=== PATIENT | female | born 1975 | race Caucasian/White ===

== ENCOUNTER 2016-11-30 12:27 | Day surgery (SDC) | payer OTHER ==
[~2016-11-30] VITALS: Ht 175.3 cm; Wt 173.4 kg
[2016-11-30] VITALS (9 sets, daily range): BP systolic 122–144; BP diastolic 56–88; PULSE 84–92; RESP 13–20; O2SAT 88–97
[~2016-11-30 12:27] MED LIST: ALBU90AE IH; ATROVENT NASAL SPRAY INH; BECL8.7A6 INHALATION; EPIN0.3P2 IJ; FLUT9.9S NS; HYDR-3740 PO; HYDR28.311 PR; IPRA15SP NS; IPRA3AMP IH; KEN1O TP; LAMO150T PO; LEVO150T5 PO; LEVO175T5 PO; LEVO200T6 PO; LIRA0.6P SQ; METH20TA33 PO; METR500T PO; PRAZ1CAP2 PO; RES15 PO; SALM50DI IH; SUMA50TA31 PO; SYMINH INHALATION; Sodium Biphos-Phos 133 mL Enema RECTAL SCH
[2016-11-30] MEDS ORDERED: Propofol 10,000 mCg/mL 20 mL Inj ONE (12:28)
[2016-11-30] MEDS ORDERED: Ondansetron 2 mg/mL 2 mL Inj ONE (12:28)
[2016-11-30] MEDS: Lactated Ringer's 1,000 ML IV SCH ×2 (12:33→14:34)
[2016-11-30] MEDS ORDERED: Lactated Ringer's 1,000 ML IV SCH (14:54)
[2016-11-30] MEDS ORDERED: Lactated Ringer's 500 ML IV PRN (14:54)
[2016-11-30] MEDS ORDERED: fentaNYL-PF 50 mCg/mL 2 mL Inj IVPUSH PRN (14:55)
[2016-11-30] MEDS ORDERED: Ondansetron 2 mg/mL 2 mL Inj IVPUSH PRN (14:55)
[2016-11-30] MEDS ORDERED: Atropine 0.4 mg/mL Inj IVPUSH PRN (14:55)
[2016-11-30] MEDS ORDERED: MetoCLOpramide 5 mg/mL 2 mL Inj IVPUSH PRN (14:55)
[2016-11-30] MEDS ORDERED: Labetalol 5 mg/mL 4 mL Inj IV PRN (14:55)
[2016-11-30] MEDS ORDERED: hydrALAZINE 20 mg/mL Inj IVPUSH PRN (14:55)
[2016-11-30] MEDS ORDERED: EPHEDrine Sulfate 50 mg/mL Inj IVPUSH PRN (14:55)
[2016-11-30] MEDS ORDERED: Phenylephrine 10,000 mCg/mL Inj IVPUSH PRN (14:55)
[2016-11-30] MEDS ORDERED: HYDROmorphone 1 mg/mL Inj IVPUSH PRN (14:55)
[2016-11-30] MEDS ORDERED: Bupivacaine-MPF 0.5% W/EPI 30 mL Inj INFILTRATE ONE (15:02)
[2016-11-30] MEDS ORDERED: HYDROcodone-APAP 5-325 mg Tablet PO PRN (16:00)
[2016-11-30] MEDS ORDERED: Albuterol 2.5 mg/3 mL Inhalation Solution NEB ONE (16:21)
--- NOTE | 2016-11-30 16:33 | OP ---
[address] [address] OPERATIVE REPORT PATIENT: PATRICIO JIMENES : 1975 MR#: [id number] ADMIT: 11/30/2016 JOB ID: [id number] DATE OF SURGERY: 11/30/2016 ANESTHESIA: General. PREOPERATIVE DIAGNOSIS(ES): Fistula in ano. POSTOPERATIVE DIAGNOSIS(ES): 1. Fistula in ano. 2. External hemorrhoids. OPERATION: 1. Anorectal examination under anesthesia. 2. Placement of draining seton in anal fistula. SURGEON: Dr. Sabas Gonzalez. MANAGER ATHLETICS: Orville Garcia PA-C (instruction assistant principal is required for safe and timely completion of this case) and JACKIE Richey. COMPLICATIONS: None. ESTIMATED BLOOD LOSS: None. CONDITION: Satisfactory. SPECIMEN: None. FINDINGS: There was a fistula extending from just inside the verge to 4 cm from the verge at the 2 o'clock position (left anterior lateral). She also had large external hemorrhoids. No other abnormalities were identified. INDICATIONS AND SIGNIFICANT HISTORY: The patient is a 41-year-old morbidly obese female, whose father has Crohn disease. She has had a history consistent with anal fistula since age 8. She recently developed an abscess with subsequent drainage and was referred to me. Given her size, a complete examination in the clinic was difficult. She also complained of pain and believed that she had an anal fissure. She has had a lot of blood per rectum. OPERATIVE TECHNIQUE: The patient was taken to the operating room and placed in the supine position. General anesthesia was administered. She was placed in lithotomy and the perineum was prepped and draped in a standard surgical fashion. A procedural pause was performed. I began with a digital rectal examination, which was unremarkable. She had large bulging circumferential external hemorrhoids. I then inserted a little anal speculum and inspected the anus. There was an inordinate amount of inflammation though the examination was somewhat limited due to her body habitus. I then probed the external opening of the anal fistula. There were a couple little openings close by but they all went to the same tract and went to the anterior midline. They did not seem to course through much external sphincter at all. A blue vessel loop was placed as a draining seton. There was an area of induration which with compression would produce some stool and pus out of the fistula tract. I, therefore, irrigated this with hydrogen peroxide and continued to manually decompress until it was clear. The case was then concluded. MTDD
--- NOTE | 2016-11-30 16:58 | PCM.HPANE ---
Patient Data Surgeon Admitting Provider: Attending Provider:Sabas Gonzalez MD Primary Care Physician:Jorge Freeman MD Other Provider:[facility] Reason for Visit Perianal Absess Ht/WT & BMI Height (Feet): 5 Height (Inches): 8 Weight (Kilograms): 171.322 Body Mass Index 57.00 Allergies Coded Allergies: gabapentin (Verified Adverse Reaction, Severe, NO POSITIVE EFFECTS,WEIGHT GAIN, 11/30/16) Past Anesthesia History Anesthesia History: Denies:: Fam Anesthesia Reaction, Fam Malignant Hypertherm Diabetes History Hx Diabetes?: Yes Type of Diabetes: Type II Glycemic Control: Insulin Dependent MRSA MRSA: No Medications Hypertension Medication: Yes (PRAZOSIN) Reported Medications Liraglutide (Victoza 2-Bolivar)0.6 Mg/0.1 Ml Pen.injctr0.2 Mg SQ DAILY 11/28/16 Triamcinolone Acet (Triamcinolone Acetonide Ointment)1 Applic/0.25 Gm Oint1 Applic TP BID #60 GM Ref 0 0.1% 11/28/16 Budesonide/Formoterol 160-4.5 mcg Inh (Symbicort 160-4.5 mcg Inh)120 Puff Inhaler2 Puff INHALATION BID #1 INHALER Ref 0 11/28/16 Salmeterol Xinafoate (Serevent Diskus)50 Mcg/Puff Inhaler1 Puff IH BID 11/28/16 Beclomethasone Dipropionate (Qvar)8.7 Gm Aer.w.adap4 Puff INHALATION BID #8.7 GM 11/28/16 Hydrocortisone (Proctosol-Hc)28.35 Gm Cream.appl1 Applic [place] DAILY 11/28/16 Prazosin 1 Mg Capsule1 Mg PO HS 11/28/16 Metronidazole (Flagyl)500 Mg Yfkzih769 Mg PO Q8H 11/28/16 Levothyroxine 200 Mcg Piojgv593 Mcg PO DAILY Ref 0 11/28/16 Levothyroxine 175 Mcg Erdxvo238 Mcg PO DAILY Ref 0 11/28/16 Ipratropium [place] (Ipratropium [place] 0.06% Nasal)15 Ml Spray1 [place] NS QID # 1 BOTTLE Ref 0 11/28/16 Hydrocodone-Acetaminophen 10-325 mg 1 Each Tablet1-2 Tablet PO Q6H PRN For Pain Ref 0 11/28/16 Fluticasone Propionate (Flonase Allergy Relief)50 Mcg/Actuation [place].susp9.9 Ml NS DAILY PRN PRN 11/28/16 Epinephrine (Epipen 2-Bolivar)0.3 Mg/0.3 Ml Auto.injct0.3 Mg IJ PRN 11/28/16 Ipratropium/Albuterol Sulfate (Iprat-Albut 0.5-3(2.5) mg/3 mL Inhalant Soln)3 Ml Ampul.neb3 Ml IH Q6 Ref 0 11/28/16 [Atrovent Nasal [place]] No Conflict Check1 [place] INH QID PRN PRN 11/28/16 Methylphenidate 20 Mg Rvcjfo29 Mg PO BID Ref 0 09/21/15 Lamotrigine (Lamictal)150 Mg Qgptul547 Mg PO BID Ref 0 09/21/15 Sumatriptan Succinate (Imitrex)50 Mg Emrhnb51-864 Mg PO PRN 09/21/15 Albuterol Sulfate (Proair Respiclick)90 Mcg Aer.pow.ba2 Puffs IH PRN 09/21/15 Temazepam 15 Mg Lkcgbbt69 Mg PO HS PRN For Insomnia Ref 0 09/21/15 Discontinued Reported Medications Levothyroxine 150 Mcg Bjebna303 Mcg PO BID Ref 0 09/21/15 Hydrocodone-Acetaminophen 10-325 mg 1 Each Tablet1-2 Tablet PO Q6H PRN For Pain Ref 0 09/21/15 Alprazolam (Xanax)0.5 Mg Tablet0.5 Mg PO TID PRN For Anxiety Ref 0 09/21/15 Omeprazole (Prilosec)20 Mg Capcr20 Mg PO DAILY PRN PRN Ref 0 09/21/15 Bupropion HCl (Zyban)150 Mg Tablet.er150 Mg PO BID 09/21/15 History History of ENT Problems?: Yes Hx of Heart Problems?: Yes Cardiovascular History: Positive for:: Hypertension Denies:: Chest Pain Heart Murmur (ECHO 02/2016 EF 70-75%) Pacemaker Rheumatic Fever Thrombophlebitis Other Cardiac History: HX LEUKOCYTOSIS Hx of Respiratory Problem?: Yes Respiratory History: Positive for:: Asthma COPD (PFT/PULM NOTES 02/2016 SHOW MODERATE OBSTRUCTION) Dyspnea Use of C-PAP Machine (JOAQUÍN+ W/ CPAP) Hx Neurologic Problems?: Yes Neurological History: Positive for:: Dizziness Headaches Denies:: Alzheimer's Disease CVA Dementia Seizures Other Neurological Pertinent: HX OF CHRONIC PAIN Hx of GI Problems?: Yes Gastrointestinal History: Positive for:: Gastroesphageal Reflux Heartburn Rectal Bleeding (HX OF 2 PREVIOUS ANAL FISTULAS ANAL FISTULA=CURRENT PROBLEM) Denies:: Liver Disease (HEPATOSPLENOMEGALY) Other GI Pertinent History: OBESITY-PT UNDERGOING WORKUP FOR BARIATRIC SURGERY Hx of Problems?: No Female Hx: Positive for:: Problems with Breasts? ("LUMPS") Denies:: Currently Endometriosis Pelvic Inflammatory Skin History: Positive for:: History Skin Disorders? (ECZEMA) Denies:: Pressure Ulcers Hx Musculoskeletal Problems?: Yes Musculoskeletal History: Positive for:: Fibromyalgia Musculoskeletal Trauma (C/OF B/L KNEE PAIN) Denies:: Back Injury Joint Replacement Hx of Psycho/Social Problems?: Yes Psycho Social History: Positive for:: Anxiety Bipolar Disorder (BIPOLAR II) Hx Depression Suicide Attempt (X2 A TEENAGER-NO HOSPITALIZATION+) Hx Surgeries?: No Hx Any Other Health Problems?: No Other History: Positive for:: Thyroid Disease Denies:: Cancer Endocrine Disease (C/OF NIGHT SWEATS) Hospitalization History Blood Transfusions: Denies:: Blood Transfusions Hx Diabetes: Yes Hx Alcohol Use: NoHx Substance Use: No Smoking Status: Former Smoker Have You Smoked inLast 12 mo: No Stop/Bang S-Snoring: Do You Snore Loudly: Yes T-Tired: feel tired, fatigued: Yes O-Obsered: Observed not breath: Yes P-Blood Pressure: treated: No B- Body Mass Index > 35 kg/m2: Yes A- Age over 50: No N- Neck Large Circumference: Yes G- Gender Male: No JOAQUÍN Total Score: 5 Risk Assessment Category Category 1A: Patient has history of documented sleep apnea, and HAS NOT received any narcotic, sedative or anesthesia administration during this stay. Category 1B: Patient has history of documented sleep apnea, and HAS received any narcotic , sedative or anesthesia administration during this stay Category 2: Patient has SUSPECTED Obstructive Sleep Apnea, and HAS received any narcotic , sedative or anesthesia administration during this stay. Category 3: Patient has SUSPECTED Obstructive Sleep Apnea and HAS NOT received narcotic, sedative or anesthesia administration during this stay. Category 4: Outpatient in Procedural Areas with known sleep apnea or who screen positive for High Risk via the STOP/BANG questionnaire. Exam Exam General Appearance: Alert, Oriented X3, Cooperative, No Acute Distress HEENT/AIRWAY: MP 2, Neck Movement (FROM very large neck circumference), Mouth Opening (3 FBMO) Lungs: Clear to Auscultation, Normal Air Movement Heart: Exam Unremarkable, Regular Rate/Rhythm, No Murmurs/Rubs/Gallops Plan Impression Patient chart reviewed, patient interviewed and anesthestic plan with risks, benefits, and alternatives discussed, and informed consent obtained. NPO Status: > 8 hrs ASA Physical Status: ASA3 Severe Disease (BMI 57) Anesthetic Support Modalities: Cantril Scope Anesthetic Plan: GA Bene/Risks/Altern/Consents: Yes HP Complete Prior to Induction: Yes Jarocho Del Angel MD Nov 30, 2016 11:58
--- NOTE | 2016-11-30 16:59 | PCM.ANEP1 ---
Post Anesthesia Phase 1 PACU Phase 1 Assessment Vital Signs Vital Signs Date Time Temp Pulse Resp B/P Pulse Ox O2 Delivery O2 Flow Rate FiO2 11/30/16 16:50 90 Room Air 11/30/16 16:45 88 Room Air 11/30/16 15:47 36.6 84 16 123/67 91 Nasal Cannula 2 11/30/16 15:44 88 16 130/56 93 Nasal Cannula 2 11/30/16 15:35 90 14 132/61 93 Nasal Cannula 3 11/30/16 15:25 92 13 131/73 97 Simple Mask 10 11/30/16 15:20 90 17 142/66 96 Simple Mask 10 11/30/16 15:15 37.3 92 17 144/88 97 Simple Mask 10 11/30/16 13:10 36.2 90 20 122/62 92 Room Air 11/30/16 12:58 CPAP/BIPAP Anesthetic Administered: GA Level of Alertness: Awake, talking WHITE's with Equal Strength: Yes Pain: No Nausea or Vomiting: No Oxygen Delivery: Simple Mask Lungs: Clear to Auscultation, Normal Air Movement Dermatome Level: Full Sensation Jarocho Del Angel MD Nov 30, 2016 16:59
--- NOTE | 2016-11-30 16:59 | PCM.ANEP2 ---
Post Anesthesia Evaluation ASA/CMS Post Anesthesia VS in Patient's Normal Range?: Yes Resp Stable; Airway Patent?: Yes CV Function & Hydration Stable: Yes Mental Status Recovered?: Yes Pain control Satisfactory?: Yes N/V Control Satisfactory?: Yes Jarocho Del Angel MD Nov 30, 2016 16:59
== END 2016-11-30 23:59 | disposition home or self-care (01) ==
LOC: SAS 12:27
PROVIDERS: ATTEND General Practice
DX: K60.3 Anal fistula (principal); K64.4 Residual hemorrhoidal skin tags; E11.9 Type 2 diabetes mellitus without complications; J44.9 Chronic obstructive pulmonary disease, unspecified; M79.7 Fibromyalgia; E03.9 Hypothyroidism, unspecified; G47.33 Obstructive sleep apnea (adult) (pediatric); K21.9 Gastro-esophageal reflux disease without esophagitis; G43.909 Migraine, unspecified, not intractable, without status migrainosus; J45.909 Unspecified asthma, uncomplicated; F98.8 Other specified behavioral and emotional disorders with onset usually occurring in childhood and adolescence; R16.0 Hepatomegaly, not elsewhere classified; E66.01 Morbid (severe) obesity due to excess calories; Z68.43 Body mass index [BMI] 50.0-59.9, adult; Z79.51 Long term (current) use of inhaled steroids
CPT/HCPCS: 46020; J2405; J7120; J7613

== ENCOUNTER 2017-01-05 08:33 | Day surgery (SDC) | payer OTHER ==
[~2017-01-05] VITALS: Ht 170.2 cm; Wt 172.0 kg
[~2017-01-05 08:33] MED LIST changes: -LEVO150T5 PO; +Lactated Ringer's 1,000 ML IV ONE; -Sodium Biphos-Phos 133 mL Enema RECTAL SCH
[2017-01-05] MEDS ORDERED: Lidocaine PF 1% 30 mL Inj ONE (09:00)
[2017-01-05] MEDS ORDERED: Propofol 10,000 mCg/mL 20 mL Inj ONE (09:00)
[2017-01-05 09:06] VITALS: BP 102/33; PULSE 81; RESP 14; O2SAT 95
[2017-01-05] MEDS ORDERED: Ondansetron 2 mg/mL 2 mL Inj IVPUSH PRN (09:15)
[2017-01-05] MEDS ORDERED: MetoCLOpramide 5 mg/mL 2 mL Inj IVPUSH PRN (09:15)
--- NOTE | 2017-01-05 09:19 | PCM.HPANE ---
Patient Data Date of Service: Jan 05, 2017 Surgeon Admitting Provider: Attending Provider:Chris Cr MD Primary Care Physician:Jorge Freeman MD Other Provider:Melo Mach[facility] Anesthesia Reason for Visit Diarrhea Ht/WT & BMI Height (Feet): 5 Height (Inches): 7 Weight (Kilograms): 172 Body Mass Index 59.00 Allergies Coded Allergies: gabapentin (Verified Adverse Reaction, Severe, NO POSITIVE EFFECTS,WEIGHT GAIN, 11/30/16) Past Anesthesia History Anesthesia History: Positive for:: Anesthesia Reactions ("bad feeling" after Succ), Denies:: Fam Anesthesia Reaction, Fam Malignant Hypertherm, Malignant Hyperthermia Diabetes History Hx Diabetes?: Yes Type of Diabetes: Type II Glycemic Control: Insulin Dependent MRSA MRSA: No Medications Hypertension Medication: No Home Meds Incl Beta Parvez: No Reported Medications Liraglutide (Victoza 2-Bolivar)0.6 Mg/0.1 Ml Pen.injctr0.2 Mg SQ DAILY 11/28/16 Triamcinolone Acet (Triamcinolone Acetonide Ointment)1 Applic/0.25 Gm Oint1 Applic TP BID #60 GM Ref 0 0.1% 11/28/16 Budesonide/Formoterol 160-4.5 mcg Inh (Symbicort 160-4.5 mcg Inh)120 Puff Inhaler2 Puff INHALATION BID #1 INHALER Ref 0 11/28/16 Beclomethasone Dipropionate (Qvar)8.7 Gm Aer.w.adap4 Puff INHALATION BID #8.7 GM 11/28/16 Hydrocortisone (Proctosol-Hc)28.35 Gm Cream.appl1 Applic [place] DAILY 11/28/16 Levothyroxine 200 Mcg Aztadj447 Mcg PO DAILY Ref 0 11/28/16 Levothyroxine 175 Mcg Iduylz581 Mcg PO DAILY Ref 0 11/28/16 Hydrocodone-Acetaminophen 10-325 mg 1 Each Tablet1-2 Tablet PO Q6H PRN For Pain Ref 0 11/28/16 Fluticasone Propionate (Flonase Allergy Relief)50 Mcg/Actuation [place].susp9.9 Ml NS DAILY PRN PRN 11/28/16 Epinephrine (Epipen 2-Bolivar)0.3 Mg/0.3 Ml Auto.injct0.3 Mg IJ PRN 11/28/16 [Atrovent Nasal [place]] No Conflict Check1 [place] INH QID PRN PRN 11/28/16 Methylphenidate 20 Mg Suorlk78 Mg PO BID Ref 0 09/21/15 Lamotrigine (Lamictal)150 Mg Zmgufh031 Mg PO BID Ref 0 09/21/15 Sumatriptan Succinate (Imitrex)50 Mg Izjami22-173 Mg PO PRN 09/21/15 Albuterol Sulfate (Proair Respiclick)90 Mcg Aer.pow.ba2 Puffs IH PRN 09/21/15 Temazepam 15 Mg Pnynrzy40 Mg PO HS PRN For Insomnia Ref 0 09/21/15 Discontinued Reported Medications Salmeterol Xinafoate (Serevent Diskus)50 Mcg/Puff Inhaler1 Puff IH BID 11/28/16 Prazosin 1 Mg Capsule1 Mg PO HS 11/28/16 Metronidazole (Flagyl)500 Mg Azppmh093 Mg PO Q8H 11/28/16 Ipratropium [place] (Ipratropium [place] 0.06% Nasal)15 Ml Spray1 [place] NS QID # 1 BOTTLE Ref 0 11/28/16 Ipratropium/Albuterol Sulfate (Iprat-Albut 0.5-3(2.5) mg/3 mL Inhalant Soln)3 Ml Ampul.neb3 Ml IH Q6 Ref 0 11/28/16 History History of ENT Problems?: Yes Hx of Heart Problems?: No Cardiovascular History: Positive for:: Hypertension Denies:: Chest Pain Heart Murmur (ECHO 02/2016 EF 70-75%) Pacemaker Rheumatic Fever Thrombophlebitis Hx of Respiratory Problem?: Yes Respiratory History: Positive for:: Asthma COPD Dyspnea Use of C-PAP Machine (JOAQUÍN+ W/ CPAP) Hx Neurologic Problems?: Yes Neurological History: Positive for:: Dizziness Headaches Denies:: Alzheimer's Disease CVA Dementia Seizures Hx of GI Problems?: Yes Gastrointestinal History: Positive for:: Gastroesphageal Reflux Heartburn Rectal Bleeding (HX OF 2 PREVIOUS ANAL FISTULAS ANAL FISTULA=CURRENT PROBLEM) Hx of Problems?: No Female Hx: Positive for:: Problems with Breasts? ("LUMPS") Denies:: Currently Endometriosis Pelvic Inflammatory Skin History: Positive for:: History Skin Disorders? (ECZEMA) Denies:: Pressure Ulcers Hx Musculoskeletal Problems?: Yes Musculoskeletal History: Positive for:: Fibromyalgia Musculoskeletal Trauma (C/OF B/L KNEE PAIN) Denies:: Back Injury Joint Replacement Hx of Psycho/Social Problems?: Yes Psycho Social History: Positive for:: Anxiety Bipolar Disorder (BIPOLAR II) Hx Depression Suicide Attempt (X2 A TEENAGER-NO HOSPITALIZATION+) Hx Surgeries?: Yes (anal fistula 3-4 weeks ago, fx foot, T&A) Hx Any Other Health Problems?: No Other History: Positive for:: Thyroid Disease Denies:: Cancer Endocrine Disease (C/OF NIGHT SWEATS) Hospitalization History Blood Transfusions: Denies:: Blood Transfusions Hx Diabetes: Yes Hx Alcohol Use: NoHx Substance Use: No Smoking Status: Former Smoker Have You Smoked inLast 12 mo: No Stop/Bang Treated for Sleep Apnea?: Yes Do You Have a CPAP Machine?: Yes JOAQUÍN Risk Assessment: High Risk, =/>3 Yes Risk Assessment Category Category 1A: Patient has history of documented sleep apnea, and HAS NOT received any narcotic, sedative or anesthesia administration during this stay. Category 1B: Patient has history of documented sleep apnea, and HAS received any narcotic , sedative or anesthesia administration during this stay Category 2: Patient has SUSPECTED Obstructive Sleep Apnea, and HAS received any narcotic , sedative or anesthesia administration during this stay. Category 3: Patient has SUSPECTED Obstructive Sleep Apnea and HAS NOT received narcotic, sedative or anesthesia administration during this stay. Category 4: Outpatient in Procedural Areas with known sleep apnea or who screen positive for High Risk via the STOP/BANG questionnaire. Exam Exam Vital Signs Vital Signs Date Time Temp Pulse Resp B/P Pulse Ox O2 Delivery O2 Flow Rate FiO2 01/05/17 09:06 36.1 81 14 102/33 95 Room Air General Appearance: Alert, Oriented X3, Cooperative HEENT/AIRWAY: MP 2, Neck Movement (Thick, MP2), Mouth Opening (Wide) Lungs: Clear to Auscultation, Normal Air Movement Heart: Regular Rate/Rhythm, Normal S1, Normal S2 Plan Impression Patient chart reviewed, patient interviewed and anesthestic plan with risks, benefits, and alternatives discussed, and informed consent obtained. NPO Status: > 8 hrs ASA Physical Status: ASA3 Severe Disease Anesthetic Plan: MAC Bene/Risks/Altern/Consents: Yes HP Complete Prior to Induction: Yes Bryce Magana MD Jan 05, 2017 09:13
[2017-01-05] MEDS: Lactated Ringer's 1,000 ML IV SCH ×2 (09:28→09:36)
[2017-01-05 09:40] VITALS: BP 111/69; PULSE 88; RESP 16; O2SAT 93
[2017-01-05 09:50] VITALS: BP_SYST 111; BP_SYST 12; BP_DIAS 69; BP_DIAS 78; PULSE 84; RESP 16; O2SAT 93
--- NOTE | 2017-01-05 10:03 | PCM.ANEP1 ---
Post Anesthesia Phase 1 PACU Phase 1 Assessment Date of Service: Jan 05, 2017 Vital Signs Vital Signs Date Time Temp Pulse Resp B/P Pulse Ox O2 Delivery O2 Flow Rate FiO2 01/05/17 09:50 84 16 12/78 93 Room Air 01/05/17 09:40 36.0 88 16 111/69 93 Room Air 01/05/17 09:06 36.1 81 14 102/33 95 Room Air Anesthetic Administered: MAC Level of Alertness: Awake, talking WHITE's with Equal Strength: Yes Pain: No Nausea or Vomiting: No Oxygen Delivery: Nasal Cannula Lungs: Normal Air Movement Bryce Magana MD Jan 05, 2017 10:03
--- NOTE | 2017-01-05 11:45 | PCM.ANEP2 ---
Post Anesthesia Evaluation ASA/CMS Post Anesthesia Date of Service: Jan 05, 2017 VS in Patient's Normal Range?: Yes Resp Stable; Airway Patent?: Yes CV Function & Hydration Stable: Yes Mental Status Recovered?: Yes Pain control Satisfactory?: Yes N/V Control Satisfactory?: Yes Bryce Magana MD Jan 05, 2017 11:45
--- NOTE | 2017-01-05 15:57 | ENDO ---
[address] [address] ENDOSCOPY PROCEDURE PATIENT: PATRICIO JIMENES : 1975 MR#: [id number] ADMIT: 01/05/2017 JOB ID: [id number] PROCEDURE: Colonoscopy with biopsy. PREOPERATIVE DIAGNOSIS(ES): Diarrhea. POSTOPERATIVE DIAGNOSIS(ES): 1. 2 mm rectal polyp, removed by cold biopsy forceps. 2. Small internal hemorrhoids. ANESTHESIA: Monitored anesthesia care. COMPLICATIONS: None. BLOOD LOSS: Minimal. DESCRIPTION OF PROCEDURE: After risks and benefits explained to patient, informed consent was obtained. After anesthesia administered, colonoscope was inserted from rectum to cecum. Mucosa carefully examined. Prep of the patient was excellent. After procedure was done, the scope withdrawn, procedure terminated. FINDINGS: Upon inspection of the anus, no masses, hemorrhoids, ulcers, but there was a seton that was seen in place in good position. Throughout the entire examination, there was a 2 mm rectal polyp, removed by cold biopsy forceps. There was no erythema and the rest of the mucosa appeared normal. Biopsies taken from the terminal ileum and random colon to rule out microscopic colitis or inflammatory bowel disease. Retroflexion showed small internal hemorrhoids. IMPRESSIONS: 1. Seton in place on rectal examination. 2. Small internal hemorrhoids. 3. A 2 mm rectal polyp, removed by cold biopsy forceps. RECOMMENDATION: Await pathology results. Follow up in GI clinic as needed. If tubular adenoma, then repeat colonoscopy in five years.
--- NOTE | 2017-01-08 16:24 | PATH ---
SURGICAL PATHOLOGY Attending Physician:Chris Cr MD CASE STATUS: Signed Out PATIENT NAME: PATRICIO JIMENES PID: [id number] : 1975 DATE COLLECTED:01/05/2017 18:03 SPECIMEN: 1: Ileum, Biopsy 2: Colon, Biopsy 3: Rectum, Biopsy CLINICAL HISTORY: DIARRHEA, COLON POLYP 1). TI BX 2). RANDOM COLON BXS 3). RECTAL POLYP FINAL DIAGNOSIS: 1.TERMINAL ILEUM, BIOPSIES: SMALL BOWEL MUCOSA WITH NO DIAGNOSTIC ABNORMALITY. Negative for active inflammation, granulomas, dysplasia, and malignancy. 2.COLON, RANDOM BIOPSIES: PATCHY, MILDLY ACTIVE COLITIS (SEE COMMENT). Negative for granulomas, dysplasia and malignancy. 3.RECTUM, POLYP, BIOPSY: HYPERPLASTIC POLYP. ICD10 codeR19.7 NOTE: 2. The random colon biopsies show patchy mild cryptitis without associated distortion of the crypt architecture. The crypts are straight and evenly distributed. No obvious viral cytopathic effects or parasitic organisms are identified. There is no evidence of ischemia. The differential diagnosis includes infection, medication-related mucosal injury, diverticular disease-associated colitis, and less likely, idiopathic inflammatory bowel disease. GROSS DESCRIPTION: Received are three formalin-filled containers, each labeled with the patient' s name. 1. Received in formalin, labeled with the patient' s name and "1. TI BX x1", are two fragments of chaidez, soft tissue ranging in size from 0.1 x 0.1 x 0.1 cm to 0.2 x 0.2 x 0.1 cm. All fragments are totally submitted in cassette 1A. 2. Received in formalin, labeled with the patient' s name and "2. Random colon BXs", are multiple fragments of chaidez, soft tissue ranging in size from 0.1 x 0.1 x 0.1 cm to 0.2 x 0.1 x 0.1 cm. All fragments are totally submitted in cassette 2A. 3. Received in formalin, labeled with the patient' s name and "3. Rectal polyp", is one fragment of chaidez, soft tissue measuring 0.1 x 0.1 x 0.1 cm. The fragment is totally submitted in cassette 3A. ([id number]) MICRO DESCRIPTION: See diagnosis. ICD-9 CODES: CPT CODES: 1: 62513 2: 01951 3: 45302 Electronically Signed Out Maricarmen Garcia MD [facility] [address], [place] [address] Technical component performed at [facility], [address], [place], [address]
== END 2017-01-05 23:59 | disposition home or self-care (01) ==
LOC: END 08:33
PROVIDERS: ATTEND Internal Medicine Gastroenterology
DX: K62.1 Rectal polyp (principal); K64.8 Other hemorrhoids; E03.9 Hypothyroidism, unspecified; E66.01 Morbid (severe) obesity due to excess calories; G47.33 Obstructive sleep apnea (adult) (pediatric); J44.9 Chronic obstructive pulmonary disease, unspecified; F98.8 Other specified behavioral and emotional disorders with onset usually occurring in childhood and adolescence; I10 Essential (primary) hypertension; E11.9 Type 2 diabetes mellitus without complications; J45.909 Unspecified asthma, uncomplicated; M79.7 Fibromyalgia; K60.3 Anal fistula; K21.9 Gastro-esophageal reflux disease without esophagitis; F31.9 Bipolar disorder, unspecified; F41.9 Anxiety disorder, unspecified; Z79.4 Long term (current) use of insulin; Z68.43 Body mass index [BMI] 50.0-59.9, adult; Z87.891 Personal history of nicotine dependence
CPT/HCPCS: 45380; J7120

== ENCOUNTER 2017-02-08 10:02 | Day surgery (SDC) | payer OTHER ==
[2017-02-08] VITALS (14 sets, daily range): BP systolic 108–150; BP diastolic 60–86; PULSE 87–96; RESP 13–19; O2SAT 86–97
[~2017-02-08] VITALS: Ht 172.7 cm; Wt 174.6 kg
--- NOTE | 2017-02-08 09:14 | PCM.HPANE ---
Patient Data Surgeon Admitting Provider: Attending Provider:Sabas Gonzalez MD Primary Care Physician:Jorge Freeman MD Other Provider:[place] Anesthesia Reason for Visit Anal Fistula Ht/WT & BMI Height (Feet): 5 Height (Inches): 8 Weight (Kilograms): 174.63 Body Mass Index 58.00 Allergies Coded Allergies: gabapentin (Verified Adverse Reaction, Severe, NO POSITIVE EFFECTS,WEIGHT GAIN, 11/30/16) Past Anesthesia History Anesthesia History: Positive for:: Anesthesia Reactions (succ "made me feel as if I was hit by a train"), Denies:: Fam Anesthesia Reaction, Fam Malignant Hypertherm, Malignant Hyperthermia Diabetes History Hx Diabetes?: Yes (Hgb A1c- 6.5- 12/06/16) Type of Diabetes: Type II Glycemic Control: Insulin Dependent MRSA MRSA: No Medications Home Meds Incl Beta Parvez: No Reported Medications Liraglutide (Victoza 2-[place])0.6 Mg/0.1 Ml Pen.injctr0.2 Mg SQ DAILY 11/28/16 Triamcinolone Acet (Triamcinolone Acetonide Ointment)1 Applic/0.25 Gm Oint1 Applic TP BID #60 GM Ref 0 0.1% 11/28/16 Budesonide/Formoterol 160-4.5 mcg Inh (Symbicort 160-4.5 mcg Inh)120 Puff Inhaler2 Puff INHALATION BID #1 INHALER Ref 0 11/28/16 Beclomethasone Dipropionate (Qvar)8.7 Gm Aer.w.adap4 Puff INHALATION BID #8.7 GM 11/28/16 Hydrocortisone (Proctosol-Hc)28.35 Gm Cream.appl1 Applic [place] DAILY 11/28/16 Levothyroxine 200 Mcg Yfxqoc951 Mcg PO DAILY Ref 0 11/28/16 Levothyroxine 175 Mcg Hfucgv138 Mcg PO DAILY Ref 0 11/28/16 Hydrocodone-Acetaminophen 10-325 mg 1 Each Tablet1-2 Tablet PO Q6H PRN For Pain Ref 0 11/28/16 Fluticasone Propionate (Flonase Allergy Relief)50 Mcg/Actuation [place].susp9.9 Ml NS DAILY PRN PRN 11/28/16 Epinephrine (Epipen 2-[place])0.3 Mg/0.3 Ml Auto.injct0.3 Mg IJ PRN 11/28/16 [Atrovent Nasal [place]] No Conflict Check1 [place] INH QID PRN PRN 11/28/16 Methylphenidate 20 Mg Aixohb76 Mg PO BID Ref 0 09/21/15 Lamotrigine (Lamictal)150 Mg Bxvtbq557 Mg PO BID Ref 0 09/21/15 Sumatriptan Succinate (Imitrex)50 Mg Vdeaxp80-207 Mg PO PRN 09/21/15 Albuterol Sulfate (Proair Respiclick)90 Mcg Aer.pow.ba2 Puffs IH PRN 09/21/15 Temazepam 15 Mg Gdjlhrn59 Mg PO HS PRN For Insomnia Ref 0 09/21/15 History History of ENT Problems?: No HEENT History: Positive for:: Abnormal Airway Denture Type: None Teeth Condition: Within Normal Limits Hx of Heart Problems?: Yes Cardiovascular History: Positive for:: Hypertension Denies:: Chest Pain Heart Murmur (ECHO 02/2016 EF 70-75%) Pacemaker Rheumatic Fever Thrombophlebitis Hx of Respiratory Problem?: Yes Respiratory History: Positive for:: Asthma COPD Dyspnea Use of C-PAP Machine Use of Inhalers / NEBS Denies:: Oxygen Administration Hx Neurologic Problems?: Yes Neurological History: Positive for:: Dizziness Headaches Denies:: Alzheimer's Disease CVA Dementia Seizures Hx of GI Problems?: Yes Other GI Pertinent History: crohns ruled out at colonoscopy, IBS alternating constipation/diarrhea Hx of Problems?: No Female Hx: Positive for:: Problems with Breasts? (breast lump hx) Denies:: Currently Endometriosis Pelvic Inflammatory Skin History: Positive for:: History Skin Disorders? (eczema) Denies:: Pressure Ulcers Hx Musculoskeletal Problems?: Yes Musculoskeletal History: Positive for:: Fibromyalgia (chronic pain) Musculoskeletal Trauma (C/OF B/L KNEE PAIN) Denies:: Back Injury Joint Replacement Hx of Psycho/Social Problems?: Yes Psycho Social History: Positive for:: Anxiety (ADD) Bipolar Disorder Hx Depression Suicide Attempt (remote hx of ideation) Hx Surgeries?: Yes (anal fistula x2, fx foot, T&A) Hx Any Other Health Problems?: No Other History: Positive for:: Thyroid Disease Denies:: Cancer Endocrine Disease Hospitalization History Blood Transfusions: Denies:: Blood Transfusions Hx Diabetes: Yes (Hgb A1c- 6.5- 12/06/16) Hx Alcohol Use: NoHx Substance Use: No Smoking Status: Former Smoker Have You Smoked inLast 12 mo: No Stop/Bang S-Snoring: Do You Snore Loudly: Yes T-Tired: feel tired, fatigued: Yes O-Obsered: Observed not breath: Yes P-Blood Pressure: treated: Yes B- Body Mass Index > 35 kg/m2: Yes A- Age over 50: Yes N- Neck Large Circumference: Yes G- Gender Male: No JOAQUÍN Total Score: 7 JOAQUÍN Risk Assessment: High Risk, =/>3 Yes JOAQUÍN Category 2: Yes Risk Assessment Category Category 1A: Patient has history of documented sleep apnea, and HAS NOT received any narcotic, sedative or anesthesia administration during this stay. Category 1B: Patient has history of documented sleep apnea, and HAS received any narcotic , sedative or anesthesia administration during this stay Category 2: Patient has SUSPECTED Obstructive Sleep Apnea, and HAS received any narcotic , sedative or anesthesia administration during this stay. Category 3: Patient has SUSPECTED Obstructive Sleep Apnea and HAS NOT received narcotic, sedative or anesthesia administration during this stay. Category 4: Outpatient in Procedural Areas with known sleep apnea or who screen positive for High Risk via the STOP/BANG questionnaire. Exam Exam General Appearance: Alert HEENT/AIRWAY: MP 3 Lungs: Clear to Auscultation Heart: Exam Unremarkable Plan Impression Patient chart reviewed, patient interviewed and anesthestic plan with risks, benefits, and alternatives discussed, and informed consent obtained. NPO per Anesth. Guidelines: Yes ASA Physical Status: ASA3 Severe Disease Anesthetic Support Modalities: [place] Scope Anesthetic Plan: GA Bene/Risks/Altern/Consents: Yes HP Complete Prior to Induction: Yes Other Discussed GA, SAB, awake intubation. Patient had severe myalgias with sux. However, se does not want a SAB or awake intubation. Plan is to topicalize airway and deeply sedate/induce. WIll use sux if necessary. Maurice Odell MD Feb 08, 2017 09:13
[~2017-02-08 10:02] MED LIST changes: +CeFAZolin Inj 2 GM in IV Premix 1 EACH IV ONE; -IPRA15SP NS; -IPRA3AMP IH; -Lactated Ringer's 1,000 ML IV ONE; +Lactated Ringer's 1,000 ML IV SCH; -METR500T PO; -PRAZ1CAP2 PO; -SALM50DI IH
[2017-02-08] MEDS ORDERED: Ondansetron 2 mg/mL 2 mL Inj ONE (10:03)
[2017-02-08] MEDS ORDERED: fentaNYL-PF 50 mCg/mL 2 mL Inj ONE (10:03)
[2017-02-08] MEDS ORDERED: Lidocaine 4% 50 mL Topical Solution TOPICAL ONE (10:03)
[2017-02-08] MEDS ORDERED: Dexamethasone 4 mg/mL Inj ONE (10:03)
[2017-02-08] MEDS ORDERED: Propofol 10,000 mCg/mL 20 mL Inj ONE (10:03)
[2017-02-08] MEDS ORDERED: CeFAZolin Inj 3 Gm/ D5W 50 mL Bag IV ONE (10:24)
[2017-02-08] MEDS ORDERED: Lactated Ringer's 1,000 ML IV ONE (10:44)
[2017-02-08] MEDS ORDERED: Lactated Ringer's 500 ML IV PRN (11:19)
[2017-02-08] MEDS ORDERED: Lactated Ringer's 1,000 ML IV SCH (11:19)
[2017-02-08] MEDS ORDERED: Dexamethasone 4 mg/mL Inj IVPUSH PRN (11:20)
[2017-02-08] MEDS ORDERED: MetoCLOpramide 5 mg/mL 2 mL Inj IVPUSH PRN (11:20)
[2017-02-08] MEDS ORDERED: fentaNYL-PF 50 mCg/mL 2 mL Inj IVPUSH PRN (11:20)
[2017-02-08] MEDS ORDERED: EPHEDrine Sulfate 50 mg/mL Inj IVPUSH PRN (11:20)
[2017-02-08] MEDS ORDERED: Ondansetron 2 mg/mL 2 mL Inj IVPUSH PRN (11:20)
[2017-02-08] MEDS ORDERED: HYDROmorphone 1 mg/mL Inj IVPUSH PRN (11:20)
[2017-02-08] MEDS ORDERED: Phenylephrine 10,000 mCg/mL Inj IVPUSH PRN (11:20)
[2017-02-08] MEDS ORDERED: Bupivacaine Liposome 1.3% 20 mL Inj ONE (11:35)
--- NOTE | 2017-02-08 11:53 | PCM.ANEP1 ---
Post Anesthesia Phase 1 PACU Phase 1 Assessment Vital Signs pacu 90% ra 139/84 HR 109 TEMP 36.9 Vital Signs Date Time Temp Pulse Resp B/P Pulse Ox O2 Delivery O2 Flow Rate FiO2 02/08/17 10:39 36.8 96 16 150/86 93 Room Air Anesthetic Administered: GA Level of Alertness: Awake, talking WHITE's with Equal Strength: Yes Pain: No Nausea or Vomiting: No Cardiovascular Function and Hy: Yes Oxygen Delivery: Simple Mask Lungs: Clear to Auscultation Dermatome Level: Full Sensation Complications: No Follow up Care: No Patient Instructions Provided: Yes Maurice Odell MD Feb 08, 2017 11:53
[2017-02-08] MEDS ORDERED: oxyCODONE-Acetamin 5-325 mg Tablet PO ONE (13:04)
[2017-02-08] MEDS ORDERED: oxyCODONE-Acetamin 5-325 mg Tablet PO PRN (13:10)
--- NOTE | 2017-02-08 20:53 | OP ---
[address] [address] OPERATIVE REPORT PATIENT: PATRICIO JIMENES : 1975 MR#: [id number] ADMIT: 02/08/2017 JOB ID: [id number] DATE OF SURGERY: 02/08/2017 SURGEON: Sabas Gonzalez MD. ANESTHESIA: General. PREOPERATIVE DIAGNOSIS(ES): Anal fistula. POSTOPERATIVE DIAGNOSIS(ES): Anal fistula. OPERATIVE PROCEDURE: Exam under anesthesia with fistulotomy. SEAM STAY STITCHER: Orville Garcia PA-C (the medical claims assistant was required for the safe and timely completion of the case). COMPLICATIONS: None. ESTIMATED BLOOD LOSS: None. CONDITION: Satisfactory. FINDINGS: The fistula was very superficial involving minimal to no external sphincter. This coursed from about 3.5 cm outside the anal verge in the left anterolateral position to just inside the anal verge. A standard fistulotomy was performed. INDICATIONS/SIGNIFICANT HISTORY: The patient is a 41-year-old, morbidly obese woman who presented with an anal fistula in November. I took her to the operating room at that time, performed exam under anesthesia and placement of a draining seton. She had a strong family history of Crohn's disease and she subsequently underwent evaluation for Crohn's disease which was negative. We therefore decided to proceed with surgical treatment of the fistula. OPERATIVE TECHNIQUE: The patient was taken to the operating room and placed in supine position. General anesthesia was administered and perioperative antibiotics were given. She was placed in lithotomy and the perineum was prepped and draped in standard surgical fashion. A procedural pause was performed. I began by inserting a lacrimal duct probe into the fistula tract and then removed the seton. I assessed the fistula. It involved a minimal amount or no external sphincter. It is very superficial. Therefore, I elected to proceed with a fistulotomy. Using electrocautery, I opened up the overlying tissue to lay open the fistula tract widely. I then anesthetized the area with liposomal bupivacaine. Digital rectal exam was performed and was unremarkable. The case was then concluded.
== END 2017-02-08 23:59 | disposition home or self-care (01) ==
LOC: SAS 10:02
PROVIDERS: ATTEND General Practice
DX: K60.3 Anal fistula (principal); E03.9 Hypothyroidism, unspecified; I10 Essential (primary) hypertension; J45.909 Unspecified asthma, uncomplicated; E11.9 Type 2 diabetes mellitus without complications; J44.9 Chronic obstructive pulmonary disease, unspecified; M79.7 Fibromyalgia; F98.8 Other specified behavioral and emotional disorders with onset usually occurring in childhood and adolescence; E66.01 Morbid (severe) obesity due to excess calories; Z68.43 Body mass index [BMI] 50.0-59.9, adult; Z87.891 Personal history of nicotine dependence; Z79.51 Long term (current) use of inhaled steroids; Z79.4 Long term (current) use of insulin
CPT/HCPCS: 46270; J1100; J1170; J2175; J2250; J2405; J3010; J7120

== ENCOUNTER → 2017-05-08 | Day surgery (SDC) | payer OTHER ==
[~2017-05-08] VITALS: Ht 175.3 cm; Wt 168.7 kg
[~2017-05-08] MED LIST changes: +ALPR0.5T PO; -CeFAZolin Inj 2 GM in IV Premix 1 EACH IV ONE; +DICY10CA56 PO; +DOCU240C41 PO; +ERGO2000 PO; +INSU100I SUBQ; +IPRA3AMP IH; +LIRA0.6P2 SQ; +Lactated Ringer's 1,000 ML IV ONE; +METH500T PO; +MOME13HF IH; +MetoCLOpramide 5 mg/mL 2 mL Inj IVPUSH PRN; +Ondansetron 2 mg/mL 2 mL Inj IVPUSH PRN; +POLY17PO6 PO; +Propofol 10,000 mCg/mL 20 mL Inj ONE; +SENN-133 PO
[2017-05-08 13:42] VITALS: BP 120/67; PULSE 89; O2SAT 90
[2017-05-08 14:11] VITALS: BP 122/63; PULSE 103; RESP 16; O2SAT 93
[2017-05-08 14:16] VITALS: BP 132/78; PULSE 92; RESP 16; O2SAT 94
--- NOTE | 2017-05-08 14:17 | ENDO ---
[address] [address] ENDOSCOPY PROCEDURE PATIENT: PATRICIO JIMENES : 1975 MR#: [id number] ADMIT: 05/08/2017 JOB ID: [id number] DATE OF SERVICE: 05/08/2017 PROCEDURE: Esophagogastroduodenoscopy with biopsy. PREOPERATIVE DIAGNOSIS(ES): Epigastric pain. POSTOPERATIVE DIAGNOSIS(ES): Normal upper endoscopy, status post biopsy. ANESTHESIA: Monitored anesthesia care. COMPLICATIONS: None. BLOOD LOSS: Minimal. DESCRIPTION OF PROCEDURE: After risks and benefits explained to the patient, informed consent was obtained. After anesthesia administered, upper endoscope was inserted into the mouth, intubated into the esophagus, stomach, second portion of duodenum. Mucosa carefully examined. After the procedure was done, the scope withdrawn and procedure terminated. FINDINGS: Upon inspection of the esophagus, the esophagus was normal without masses, ulcers, or lesions. Z-line located 40 cm from . Upon entry into the stomach, the stomach was also normal without masses, ulcers, or lesions. Retroflexion was normal. Duodenal bulb, first and second portion were normal. Biopsies taken of the antrum and body of the stomach. IMPRESSION: Normal upper endoscopy. Several biopsies. RECOMMENDATION: Await pathology results. Follow up in GI clinic as needed.
--- NOTE | 2017-05-08 16:24 | PCM.HPANE ---
Patient Data Surgeon Admitting Provider: Attending Provider:Chris Cr MD Primary Care Physician:Jorge Freeman MD Other Provider:Melo Machado Anesthesia Reason for Visit Epigastric Abdominal Pain Ht/WT & BMI Body Mass Index Allergies Coded Allergies: gabapentin (Verified Adverse Reaction, Severe, NO POSITIVE EFFECTS,WEIGHT GAIN, 11/30/16) Past Anesthesia History Anesthesia History: Positive for:: Abnormal Airway, Anesthesia Reactions (succ "made me feel as if I was hit by a train"), Denies:: Difficult Intubation, Fam Anesthesia Reaction, Fam Malignant Hypertherm, Malignant Hyperthermia Diabetes History Hx Diabetes?: Yes Type of Diabetes: Type II Glycemic Control: Insulin Dependent MRSA MRSA: No Medications Reported Medications Alprazolam (Xanax)0.5 Mg Tablet0.5 Mg PO TID PRN For Anxiety Ref 0 05/07/17 Liraglutide (Victoza 3-Bolivar)0.6 Mg/0.1 Ml Pen.injctr0.6 Mg SQ DIRECTED 05/07/17 Docusate Calcium (Stool Softener)240 Mg Capsule3 Tablet PO A PRN For Constipation 05/07/17 Sennosides (Senna)8.6 Mg Dpiait11.2 Mg PO DAILY 05/07/17 Methocarbamol (Robaxin)500 Mg Vihrii027 Mg PO BID 05/07/17 Polyethylene Glycol 3350 (Miralax)17 Gm Powd.pack17 Gm PO TID 05/07/17 Ergocalciferol (Vitamin D2) (Vitamin D2)2,000 Unit Mekwtc16,000 Unit PO WEEKLY 05/07/17 Ipratropium/Albuterol Sulfate (Iprat-Albut 0.5-3(2.5) mg/3 mL Inhalant Soln)3 Ml Ampul.neb3 Ml IH Q6 Ref 0 05/07/17 Mometasone/Formoterol (Dulera 200 Mcg/5 Mcg Inhaler)13 Gm Hfa.aer.ad2 Puffs IH BID 05/07/17 Dicyclomine (Bentyl)10 Mg Qsajrfc48 Mg PO QID PRN For Pain 05/07/17 Triamcinolone Acet (Triamcinolone Acetonide Ointment)1 Applic/0.25 Gm Oint1 Applic TP BID #60 GM Ref 0 0.1% 11/28/16 Beclomethasone Dipropionate (Qvar)8.7 Gm Aer.w.adap4 Puff INHALATION BID #8.7 GM 11/28/16 Hydrocortisone (Proctosol-Hc)28.35 Gm Cream.appl1 Applic [place] DAILY 11/28/16 Levothyroxine 200 Mcg Tsitkz811 Mcg PO DAILY Ref 0 11/28/16 Levothyroxine 175 Mcg Tlkuhi147 Mcg PO DAILY Ref 0 11/28/16 Hydrocodone-Acetaminophen 10-325 mg 1 Each Tablet1-2 Tablet PO Q6H PRN For Pain Ref 0 11/28/16 Fluticasone Propionate (Flonase Allergy Relief)50 Mcg/Actuation [place].susp9.9 Ml NS DAILY PRN PRN 11/28/16 Epinephrine (Epipen 2-Bolivar)0.3 Mg/0.3 Ml Auto.injct0.3 Mg IJ PRN 11/28/16 Methylphenidate 20 Mg Llwmre48 Mg PO BID Ref 0 09/21/15 Lamotrigine (Lamictal)150 Mg Ubtwus922 Mg PO TID Ref 0 09/21/15 Sumatriptan Succinate (Imitrex)50 Mg Kzwfta13-205 Mg PO PRN 09/21/15 Albuterol Sulfate (Proair Respiclick)90 Mcg Aer.pow.ba2 Puffs IH PRN 09/21/15 Temazepam 15 Mg Klfgebe57 Mg PO HS PRN For Insomnia Ref 0 09/21/15 Discontinued Reported Medications Insulin Aspart (NovoLOG U-100 Pen)100 Unit/Ml Insuln.pen30 Units SUBQ DIRECTED 05/07/17 Sumatriptan Succinate (Imitrex)50 Mg Befrsm18 Mg PO DIRECTED PRN MIGRAINES 05/07/17 Liraglutide (Victoza 2-Bolivar)0.6 Mg/0.1 Ml Pen.injctr0.2 Mg SQ DAILY 11/28/16 Budesonide/Formoterol 160-4.5 mcg Inh (Symbicort 160-4.5 mcg Inh)120 Puff Inhaler2 Puff INHALATION BID #1 INHALER Ref 0 11/28/16 [Atrovent Nasal [place]] No Conflict Check1 [place] INH QID PRN PRN 11/28/16 History History of ENT Problems?: No HEENT History: Positive for:: Abnormal Airway Denture Type: None Teeth Condition: Within Normal Limits Hx of Heart Problems?: Yes Cardiovascular History: Positive for:: Hypertension Denies:: AICD Abdominal Aortic Aneurism Atrial Fibrillation Cardiac Surgery Chest Pain Congestive Heart Failure Coronary Artery Disease Edema Heart Murmur (ECHO 02/2016 EF 70-75%) Irregular Heartbeat Pacemaker Peripheral Vascular Rheumatic Fever Thrombophlebitis Valvular Heart Disease Hx of Respiratory Problem?: Yes Respiratory History: Positive for:: Asthma COPD Dyspnea Use of C-PAP Machine Denies:: Chest Surgery Cough Emphysema Hemoptysis Oxygen Administration Pneumonia Pulmonary Embolism Tuberculosis Use of Inhalers / NEBS Hx Neurologic Problems?: Yes Neurological History: Positive for:: Dizziness Headaches Denies:: Alzheimer's Disease CVA Dementia Multiple Sclerosis Parkinson's Disease Peripheral Neuropathy Seizures TIA Hx of GI Problems?: Yes Gastrointestinal History: Denies:: Cirrhosis Diverticulitis Gall Bladder Disease Gastroesphageal Reflux Gastrointestinal Bleeding Heartburn Hepatitis Hiatal Hernia Liver Disease Rectal Bleeding Hx of Problems?: No Genitourinary History: Denies:: HX of Hemodialysis Kidney Stones Urinary Tract Infection HX of Peritoneal Dialysis: No Female Hx: Positive for:: Problems with Breasts? (breast lump hx) Denies:: Currently Endometriosis Pelvic Inflammatory Skin History: Positive for:: History Skin Disorders? (eczema) Denies:: Pressure Ulcers Hx Musculoskeletal Problems?: Yes Musculoskeletal History: Positive for:: Musculoskeletal Trauma (C/OF B/L KNEE PAIN) Denies:: Back Injury Degenerative Joint Fibromyalgia Joint Replacement Myasthenia Gravis Osteoarthritis Rheumatoid Arthritis Systemic Lupus Hx of Psycho/Social Problems?: Yes Psycho Social History: Positive for:: Anxiety (ADD) Bipolar Disorder Hx Depression Suicide Attempt (remote hx of ideation) Hx Surgeries?: Yes (anal fistula x2, fx foot, T&A) Hx Any Other Health Problems?: No Other History: Positive for:: Thyroid Disease Denies:: Cancer Endocrine Disease Hospitalization History Blood Transfusions: Denies:: Blood Transfusions Hx Diabetes: Yes Hx Alcohol Use: NoHx Substance Use: No Smoking Status: Former Smoker Have You Smoked inLast 12 mo: No Stop/Bang Risk Assessment Category Category 1A: Patient has history of documented sleep apnea, and HAS NOT received any narcotic, sedative or anesthesia administration during this stay. Category 1B: Patient has history of documented sleep apnea, and HAS received any narcotic , sedative or anesthesia administration during this stay Category 2: Patient has SUSPECTED Obstructive Sleep Apnea, and HAS received any narcotic , sedative or anesthesia administration during this stay. Category 3: Patient has SUSPECTED Obstructive Sleep Apnea and HAS NOT received narcotic, sedative or anesthesia administration during this stay. Category 4: Outpatient in Procedural Areas with known sleep apnea or who screen positive for High Risk via the STOP/BANG questionnaire. Exam Exam General Appearance: Alert, Oriented X3, Cooperative, No Acute Distress HEENT/AIRWAY: MP 2, Neck Movement (FROM, large neck circumference) Lungs: Clear to Auscultation, Normal Air Movement Heart: Exam Unremarkable, Regular Rate/Rhythm, No Murmurs/Rubs/Gallops Plan Impression Patient chart reviewed, patient interviewed and anesthestic plan with risks, benefits, and alternatives discussed, and informed consent obtained. NPO per Anesth. Guidelines: Yes ASA Physical Status: ASA3 Severe Disease (BMi 54) Anesthetic Plan: MAC Bene/Risks/Altern/Consents: Yes HP Complete Prior to Induction: Yes Jarocho Del Angel MD May 08, 2017 07:25
--- NOTE | 2017-05-08 16:25 | PCM.ANEP1 ---
Post Anesthesia PACU Phase 1 Assessment Vital Signs Vital Signs Date Time Temp Pulse Resp B/P Pulse Ox O2 Delivery O2 Flow Rate FiO2 05/08/17 14:16 92 16 132/78 94 Room Air 05/08/17 14:11 103 16 122/63 93 Room Air 05/08/17 13:42 89 120/67 90 Room Air Anesthetic Administered: MAC Level of Alertness: Awake, talking WHITE's with Equal Strength: Yes Pain: No Nausea or Vomiting: No CV Function & Hydration Stable: Yes Airway Device: Oxygen Delivery: Room Air Lungs: Clear to Auscultation, Normal Air Movement Dermatome Level: Full Sensation PACU Phase 2 Assessment Complications: No Follow up Care: N/A Patient Instructions Provided: N/A Jarocho Del Angel MD May 08, 2017 16:24
--- NOTE | 2017-05-10 11:40 | PATH ---
SURGICAL PATHOLOGY Attending Physician:Chris Cr MD CASE STATUS: Signed Out PATIENT NAME: PATRICIO JIMENES PID: [id number] : 1975 DATE COLLECTED:05/08/2017 00:00 SPECIMEN: 1: Stomach, Antrum, Biopsy 2: Gastric, Biopsy CLINICAL HISTORY: 1). ANTRAL BIOPSY 2). GASTRIC BIOPSY (RULE OUT H.PYLORI) FINAL DIAGNOSIS: 1.ANTRAL BIOPSY: GASTRIC ANTRAL MUCOSA WITH NO DIAGNOSTIC ALTERATIONS. Negative for Helicobacter organisms on H&E stains. Negative for intestinal metaplasia. Negative for dysplasia and malignancy. 2.GASTRIC BIOPSY: GASTRIC BODY MUCOSA WITH NO DIAGNOSTIC ALTERATIONS. Negative for Helicobacter organisms on H&E stains. Negative for intestinal metaplasia. Negative for dysplasia and malignancy. ICD10 R10.13 GROSS DESCRIPTION: The specimen is received in two formalin filled containers labeled with the patient's name. 1). The specimen is labeled "antrum" and consists of 2 portions of tissue which aggregate to 0.2 x 0.2 x 0.2 CM. The specimen is entirely submitted in cassette 1A. 2). The specimen is labeled "gastric body" and consists of 2 tiny portions of tissue which aggregate to 0.3 x 0.3 x 0.2 CM. The specimen is entirely submitted in cassette 2A. 05/09/2017TX MICRO DESCRIPTION: See diagnosis. ICD-9 CODES: CPT CODES: 1: 14000 2: 90686 Electronically Signed Out Sheree Brar MD [facility] Pathology [facility] [place] [address] Technical component performed at [facility], [facility] [address], [address]
== END | disposition home or self-care (01) ==
LOC: END 00:25
PROVIDERS: ATTEND Internal Medicine Gastroenterology
DX: R10.13 Epigastric pain (principal); E03.9 Hypothyroidism, unspecified; J44.9 Chronic obstructive pulmonary disease, unspecified; G47.33 Obstructive sleep apnea (adult) (pediatric); E11.9 Type 2 diabetes mellitus without complications; I10 Essential (primary) hypertension; J45.909 Unspecified asthma, uncomplicated; F98.8 Other specified behavioral and emotional disorders with onset usually occurring in childhood and adolescence; E66.01 Morbid (severe) obesity due to excess calories; Z68.43 Body mass index [BMI] 50.0-59.9, adult; Z79.4 Long term (current) use of insulin; Z79.51 Long term (current) use of inhaled steroids
CPT/HCPCS: 43239; J7120